=== PATIENT | female | born 1980 | race American Indian/Alaskan Native ===

== ENCOUNTER 2017-04-07 10:37 | Outpatient (CLI) | payer OTHER ==
--- NOTE | 2017-04-07 13:10 | Ultrasound Report ---
TRANSABDOMINAL AND TRANSVAGINAL PELVIC ULTRASOUND: 04/07/17 10:37:00 CLINICAL: Pelvic pain and heavy menses. FINDINGS: Transabdominal and transvaginal pelvic ultrasound demonstrated a minimally enlarged fibroid uterus measuring 10.3 x 4.8 x 6.4 cm. The only measurable fibroid is an anterior lower uterine segment intramural fibroid measuring 1.8 x 1.7 x 1.5 cm. The myometrium has a heterogeneous echo pattern. The endometrium is normal and measures 9.2 mm AP thickness. Normal ovaries. The right ovary measures 2.4 x 1.6 x 2.2cm. The left ovary measures 4.3 x 1.3 x 2.5cm. No adnexal mass. No free fluid. Normal urinary bladder. IMPRESSION: 1. A minimally enlarged fibroid uterus with a single measurable 1.8 cm fibroid. I suspect additional smaller non-measurable leiomyomata. 2. Normal endometrium. 3. Normal ovaries.
== END 2017-04-07 10:38 | disposition home or self-care (01) ==
LOC: SPVWC 10:37
PROVIDERS: ATTEND Nurse Practitioner Family
DX: D25.9 Leiomyoma of uterus, unspecified (principal)
CPT/HCPCS: 76830; 76856